=== PATIENT | male | born 1945 | race Caucasian/White ===

== ENCOUNTER 2017-03-23 15:15 | Emergency (ER) | payer MEDICARE, BC ==
[2017-03-23] MEDS ORDERED: Iopamidol 755 Mg/ML 100 ML Bottle IVPUSH ONE (15:50)
[2017-03-23] MEDS ORDERED: Sodium Chloride 0.9% 10 ML Syringe FLUSH ONE (15:50)
--- NOTE | 2017-03-23 15:53 | EDM.PDOC ---
ED HPI GENERAL MEDICAL PROBLEM - General Chief Complaint: Abdominal Pain Stated Complaint: ABD PAIN Time Seen by Provider: 03/23/17 15:47 Source of Information: Reports: Patient History Limitations: Reports: No Limitations - History of Present Illness INITIAL COMMENTS - FREE TEXT/NARRATIVE: 72-year-old male presents for evaluation treatment of abdominal pain. Patient reports that the abdominal pain began suddenly about 30 minutes ago. He states there was a 9 out of 10 and now a 5 out of 10. It is steadily improving. Patient reports that he took 2 dulcolax tabs today. He is also on hydrocodone for chronic back pain and took a hydrocodone for 1 hour ago. States he had a pumpkin spice cappuccino. The abdominal pain began shortly afterwards. He is belching more than normal. No chest pain, shortness of breath, fevers, chills, lightheadedness, dizziness, syncope or any vomiting. Past medical history includes a history of a bleeding ulcer. 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 He does have a coronary stent in place. Has chronic back pain. Onset: Today, Sudden Duration: Minutes: (30) Location: Reports: Abdomen Associated Symptoms: Denies: Chest Pain, Fever/Chills, Nausea/Vomiting, Shortness of Breath, Syncope Abdominal Pain Score (Numeric/FACES): 7 - Related Data Allergies Allergy/AdvReac Type Severity Reaction Status Date / Time No Known Allergies Allergy Verified 03/23/17 15:24 Home Meds: Home Meds Bisacodyl [Dulcolax] 5 mg PO ASDIRECTED PRN 03/23/17 [History] Doxazosin [Cardura] 4 mg PO DAILY 03/23/17 [History] Fluticasone/Salmeterol [Fluticasone-Salmeterol 55-14] 1 each IH ASDIRECTED 03/23 [History] Hydrocodone/Acetaminophen [Hydrocodon-Acetaminophn 10-325] 1 tab PO Q4H PRN [History] Metoprolol Succinate 25 mg PO DAILY 03/23/17 [History] Omeprazole 20 mg PO DAILY 03/23/17 [History] Ondansetron HCl [Ondansetron] 8 mg PO ASDIRECTED PRN 03/23/17 [History] Simvastatin [Zocor] 20 mg PO BEDTIME 03/23/17 [History] amLODIPine [Norvasc] 5 mg PO DAILY 03/23/17 [History] Past Medical History Cardiovascular History: Reports: Hypertension, NE Gastrointestinal History: Reports: Diverticulosis, Other (See Below) Other Gastrointestinal History: colon resection on January 09 and bleeding ulcer - Past Surgical History Cardiovascular Surgical History: Reports: Coronary Artery Stent GI Surgical History: Reports: Appendectomy, Colonoscopy, Kp Fundoplication ED ROS GENERAL - Review of Systems Review Of Systems: See Below Constitutional: Denies: Fever, Chills Respiratory: Denies: Shortness of Breath Cardiovascular: Denies: Chest Pain, Lightheadedness GI/Abdominal: Reports: Abdominal Pain (upper abdominen). Denies: Hematemesis, Nausea, Vomiting Musculoskeletal: Reports: Back Pain (chronic, no worse than normal) Neurological: Denies: Dizziness, Syncope ED EXAM, GI/ABD - Physical Exam Exam: See Below Exam Limited By: No Limitations General Appearance: Alert, WD/WN, Anxious, Mild Distress Ears: Normal External Exam Nose: Normal Inspection Throat/Mouth: Normal Inspection, Normal Lips, Normal Voice, No Airway Compromise Respiratory/Chest: No Respiratory Distress, Lungs Clear, Normal Breath Sounds Cardiovascular: Normal Peripheral Pulses, Regular Rate, Rhythm, No Murmur GI/Abdominal Exam: Normal Bowel Sounds, Soft, Guarding, Tender (umbilical). No : Rigid, Rebound Neurological: Alert, Oriented, Normal Cognition Psychiatric: Normal Affect, Normal Mood Skin Exam: Warm, Dry, Normal Color EKG INTERPRETATION EKG Date: 03/23/17 Time: 16:25 Rhythm: NSR Rate (Beats/Min): 59 [place]: Normal QRS: Normal ST-T: Normal QT: Normal EKG Interpretation Comments: NSR at 59 bpm. No acute changes. Reviewed by myself and Dr. Aaron. Course - Vital Signs Last Recorded V/S: Last Vital Signs Temp 36.5 C 03/23/17 15:24 Pulse 60 03/23/17 15:24 Resp BP 150/79 H 03/23/17 15:24 Pulse Ox 100 03/23/17 15:24 - Orders/Labs/Meds Orders: Active Orders 24 hr Category Date Time Status Cardiac Monitoring [RC] . DIRECTED Care 03/23/17 15:42 Active EKG 12 Lead [EKG Documentation Completion] [RC] STAT Care 03/23/17 15:50 Active Peripheral IV Care [RC] . DIRECTED Care 03/23/17 15:44 Active Chest 2V [CR] Stat Exams 03/23/17 15:42 Taken Peripheral IV Insertion Adult [OM.PC] Routine Oth 03/23/17 15:42 Ordered Labs: Laboratory Tests 03/23/17 03/23/17 03/23/17 Range/Units 16:17 16:17 16:35 WBC 8.65 (4.23-9.07) K/mm3 RBC 4.02 L (4.63-6.08) M/mm3 Hgb 12.6 L (13.7-17.5) gm/L Hct 37.9 L (40.1-51.0) % MCV 94.3 H (79.0-92.2) fl MCH 31.3 (25.7-32.2) pg MCHC 33.2 (32.2-35.5) g/dl RDW Std Deviation 44.0 H (35.1-43.9) fL Plt Count 192 (163-337) K/mm3 MPV 11.5 (9.4-12.3) fl Neutrophils % (Manual) 46 (40-60) % Band Neutrophils % 0 (0-10) % Lymphocytes % (Manual) 41 H (20-40) % Atypical Lymphs % 4 % Monocytes % (Manual) 8 (2-10) % Eosinophils % (Manual) 1 (0.8-7.0) % Basophils % (Manual) 0 L (0.2-1.2) Platelet Estimate Adequate Plt Morphology Comment Normal RBC Morph Comment Normal Sodium 136 (136-145) mEq/L Potassium 4.1 (3.5-5.1) mEq/L Chloride 102 (98-107) mEq/L Carbon Dioxide 27 (21-32) mEq/L Anion Gap 11.1 (5-15) BUN 17 (7-18) mg/dL Creatinine 1.1 (0.7-1.3) mg/dL Est Cr Clr Drug Dosing 63.60 mL/min Estimated GFR (MDRD) > 60 (>60) mL/min BUN/Creatinine Ratio 15.5 (14-18) Glucose 104 (83-115) mg/dL Calcium 8.8 (8.5-10.1) mg/dL Total Bilirubin 0.2 (0.2-1.0) mg/dL AST 22 (15-37) U/L ALT 20 (16-63) U/L Alkaline Phosphatase 60 (46-116) U/L Troponin I < 0.017 (0.00-0.056) ng/mL C-Reactive Protein < 0.2 (<1.0) mg/dL Total Protein 6.2 L (6.4-8.2) g/dl Albumin 3.6 (3.4-5.0) g/dl Globulin 2.6 gm/dL Albumin/Globulin Ratio 1.4 (1-2) Urine Color Yellow (Yellow) Urine Appearance Clear (Clear) Urine pH 6.5 (5.0-8.0) Ur Specific [place] 1.015 (1.005-1.030) Urine Protein Negative (Negative) Urine Glucose (UA) Negative (Negative) Urine Ketones Negative (Negative) Urine Occult Blood Negative (Negative) Urine Nitrite Negative (Negative) Urine Bilirubin Negative (Negative) Urine Urobilinogen 0.2 (0.2-1.0) Ur Leukocyte Esterase Negative (Negative) Urine RBC 0-5 (0-5) /hpf Urine WBC 0-5 (0-5) /hpf Ur Epithelial Cells Not seen (0-5) /hpf Urine Bacteria Rare (FEW) /hpf Urine Mucus Not seen (FEW) /hpf Urine Other See note 03/23/17 Range/Units 18:23 WBC (4.23-9.07) K/mm3 RBC (4.63-6.08) M/mm3 Hgb (13.7-17.5) gm/L Hct (40.1-51.0) % MCV (79.0-92.2) fl MCH (25.7-32.2) pg MCHC (32.2-35.5) g/dl RDW Std Deviation (35.1-43.9) fL Plt Count (163-337) K/mm3 MPV (9.4-12.3) fl Neutrophils % (Manual) (40-60) % Band Neutrophils % (0-10) % Lymphocytes % (Manual) (20-40) % Atypical Lymphs % % Monocytes % (Manual) (2-10) % Eosinophils % (Manual) (0.8-7.0) % Basophils % (Manual) (0.2-1.2) Platelet Estimate Plt Morphology Comment RBC Morph Comment Sodium (136-145) mEq/L Potassium (3.5-5.1) mEq/L Chloride (98-107) mEq/L Carbon Dioxide (21-32) mEq/L Anion Gap (5-15) BUN (7-18) mg/dL Creatinine (0.7-1.3) mg/dL Est Cr Clr Drug Dosing mL/min Estimated GFR (MDRD) (>60) mL/min BUN/Creatinine Ratio (14-18) Glucose (83-115) mg/dL Calcium (8.5-10.1) mg/dL Total Bilirubin (0.2-1.0) mg/dL AST (15-37) U/L ALT (16-63) U/L Alkaline Phosphatase (46-116) U/L Troponin I < 0.017 (0.00-0.056) ng/mL C-Reactive Protein (<1.0) mg/dL Total Protein (6.4-8.2) g/dl Albumin (3.4-5.0) g/dl Globulin gm/dL Albumin/Globulin Ratio (1-2) Urine Color (Yellow) Urine Appearance (Clear) Urine pH (5.0-8.0) Ur Specific [place] (1.005-1.030) Urine Protein (Negative) Urine Glucose (UA) (Negative) Urine Ketones (Negative) Urine Occult Blood (Negative) Urine Nitrite (Negative) Urine Bilirubin (Negative) Urine Urobilinogen (0.2-1.0) Ur Leukocyte Esterase (Negative) Urine RBC (0-5) /hpf Urine WBC (0-5) /hpf Ur Epithelial Cells (0-5) /hpf Urine Bacteria (FEW) /hpf Urine Mucus (FEW) /hpf Urine Other Meds: Medications Discontinued Medications Generic Name Dose Route Start Last Admin Trade Name Freq PRN Reason Stop Dose Admin Sodium Chloride 100 mls @ 60 mls/hr 03/23/17 16:00 03/23/17 16:11 Normal Saline IV 60 mls/hr ASDIRECTED RADHA Administration Iopamidol 100 ml 03/23/17 15:50 03/23/17 16:11 Isovue-370 (76%) IVPUSH 03/23/17 15:51 100 ml ONETIME ONE Administration Iopamidol 50 ml 03/23/17 15:57 03/23/17 16:11 Isovue-370 (76%) IVPUSH 03/23/17 15:58 30 ml ONETIME ONE Administration Sodium Chloride 10 ml 03/23/17 15:42 03/23/17 16:11 Saline Flush FLUSH 10 ml ASDIRECTED PRN Administration Keep Vein Open Sodium Chloride 10 ml 03/23/17 15:50 03/23/17 16:09 Saline Flush FLUSH 03/23/17 15:51 10 ml ONETIME ONE Administration - Radiology Interpretation Free Text/Narrative:: CT angiogram of the abdomen and pelvis Technique: Multiple axial sections were obtained from above the dome of the diaphragm inferiorly through the pubic symphysis. Intravenous contrast was utilized. Scanning was obtained during the arterial phase of contrast administration. No oral contrast has been given. Delayed images were also obtained through the abdomen and pelvis. Findings: Small portion of the visualized lung bases shows nothing acute. Moderately large hiatal hernia is seen. There appears to be surgical clips at the gastroesophageal junction. Liver shows no focal abnormality. Spleen appears within normal limits. Adrenal glands show no nodule. Kidneys show symmetric contrast enhancement without hydronephrosis or mass. Pancreas is within normal limits. Abdominal aorta shows mild atherosclerotic change without aneurysmal dilatation. Several surgical clips are seen within the retroperitoneum. Previous bowel surgery is seen within the sigmoid colon. Prostate gland is enlarged. No pelvic mass or adenopathy is seen. Mild atherosclerotic calcified plaque seen at the origin of the right renal artery. No renal artery stenosis is seen. Celiac axis appears patent. Superior mesenteric and inferior mesenteric arteries appear patent. Bone window settings were reviewed which shows mild scattered degenerative change within the spine. Impression: 1. Moderate hiatal hernia. Several high density areas are seen at the gastroesophageal junction most likely due to surgical clips. 2. Slight calcified plaque at the origin of the right renal artery. No renal artery stenosis is seen. Other branch vessels of the aorta appear patent. Abdominal aorta appears patent, no aneurysm is seen. 3. Other incidental findings. Chest xray 1 view shows no acute intathoracic process. - Re-Assessments/Exams Free Text/Narrative Re-Assessment/Exam: 03/23/17 18:29 I reviewed the labs and CT results with the patient. Reports pain is gone. He is expressing bloating at this time. Patient discussed with Dr. Aaron. Feels that work up has been appropriate. Likely gas pain and constipation causing pain. We decided to go and repeat the troponin. 03/23/17 19:13 Repeat trop is negative at <0.017. I Feels symptoms are likely from gas pains and constipation. Will discharge home at this time. Discharge instructions as documented. Departure - Departure Time of Disposition: 19:13 Disposition: Home, Self-Care 01 Condition: Good Clinical Impression: Constipation, Abdominal pain - Discharge Information Instructions: Constipation, Adult, [id number], Abdominal Pain, Adult, Easy-to -Read Referrals: Richi Casas MD [Primary Care Provider] - Forms: ED Department Discharge Additional Instructions: Recommend [id number] MiraLAX. make sure you are drinking plenty of fluids. Also recommend starting a [id number] probiotic for something like activity ago but. Follow-up with your primary care provider in 1-2 weeks for recheck of your symptoms. Please return to ER if your symptoms change or worsen. - My Orders Last 24 Hours: My Active Orders 03/23/17 15:42 Cardiac Monitoring [RC] . DIRECTED Chest 2V [CR] Stat Peripheral IV Insertion Adult [OM.PC] Routine 03/23/17 15:44 Peripheral IV Care [RC] . DIRECTED 03/23/17 15:50 EKG 12 Lead [EKG Documentation Completion] [RC] STAT - Assessment/Plan Last 24 Hours: My Active Orders 03/23/17 15:42 Cardiac Monitoring [RC] . DIRECTED Chest 2V [CR] Stat Peripheral IV Insertion Adult [OM.PC] Routine 03/23/17 15:44 Peripheral IV Care [RC] . DIRECTED 03/23/17 15:50 EKG 12 Lead [EKG Documentation Completion] [RC] STAT
[2017-03-23] MEDS ORDERED: Iopamidol 755 MG/ML 50 ML Bottle IVPUSH ONE (15:57)
[2017-03-23] MEDS ORDERED: Sodium Chloride 0.9% 100 ML IV SCH (16:00)
[2017-03-23] MEDS: Sodium Chloride 0.9% 10 ML Syringe FLUSH PRN ×2 (16:09→16:11)
--- NOTE | 2017-03-23 16:27 | CT ---
CT angiogram of the abdomen and pelvis Technique: Multiple axial sections were obtained from above the dome of the diaphragm inferiorly through the pubic symphysis. Intravenous contrast was utilized. Scanning was obtained during the arterial phase of contrast administration. No oral contrast has been given. Delayed images were also obtained through the abdomen and pelvis. Findings: Small portion of the visualized lung bases shows nothing acute. Moderately large hiatal hernia is seen. There appears to be surgical clips at the gastroesophageal junction. Liver shows no focal abnormality. Spleen appears within normal limits. Adrenal glands show no nodule. Kidneys show symmetric contrast enhancement without hydronephrosis or mass. Pancreas is within normal limits. Abdominal aorta shows mild atherosclerotic change without aneurysmal dilatation. Several surgical clips are seen within the retroperitoneum. Previous bowel surgery is seen within the sigmoid colon. Prostate gland is enlarged. No pelvic mass or adenopathy is seen. Mild atherosclerotic calcified plaque seen at the origin of the right renal artery. No renal artery stenosis is seen. Celiac axis appears patent. Superior mesenteric and inferior mesenteric arteries appear patent. Bone window settings were reviewed which shows mild scattered degenerative change within the spine. Impression: 1. Moderate hiatal hernia. Several high density areas are seen at the gastroesophageal junction most likely due to surgical clips. 2. Slight calcified plaque at the origin of the right renal artery. No renal artery stenosis is seen. Other branch vessels of the aorta appear patent. Abdominal aorta appears patent, no aneurysm is seen. 3. Other incidental findings. Diagnostic code #2
--- NOTE | 2017-03-24 08:38 | CR ---
Chest: Two views of the chest were obtained. Comparison: No prior chest x-ray. Mild atelectasis is seen within the left base. Lungs otherwise are clear. Heart size and mediastinum are normal. Mild degenerative spurring is seen within the spine. Several compression deformities are seen within the mid thoracic spine which are likely old. Impression: 1. Incidental findings. Nothing acute is appreciated. Diagnostic code #2
== END 2017-03-23 19:20 | disposition home or self-care (01) ==
LOC: JD.ED 15:15
DX: K59.00 Constipation, unspecified (principal); I10 Essential (primary) hypertension; Z79.899 Other long term (current) drug therapy; Z95.5 Presence of coronary angioplasty implant and graft
CPT/HCPCS: 36415; 71020; 74177; 80053; 81001; 84484; 85025; 86140; 93005; 99285; J7030; J7050; Q9967; 99284